=== PATIENT | female | born 1945 | race Caucasian/White ===

== ENCOUNTER 2019-02-02 14:09 | Emergency (ER) | payer BC, MEDICAID ==
[~2019-02-02] VITALS: Ht 160 cm; Wt 100.7 kg
--- NOTE | 2019-02-02 15:40 | NUR ---
jared garrido brought back pt 's electric scooter. pt so has the carter in his hand
--- NOTE | 2019-02-02 16:10 | NUR ---
Patient discharged to home in stable conditon. Written and verbal after care instructions given. Patient verbalizes understanding of instructions.pt was offered ambulance to transfer the pt home. pt refused and requested taxi to be called.
--- NOTE | 2019-02-02 16:26 | NUR ---
roc jackson, utility worker [employer], assissted pt to put the pt own sling on and transfering the pt from bed to pt own electrical wheelchair with maxi move fiona lift per pt request. pt refused to sit at the center and instead insisted to sit on the side. pt so at bedside.
[2019-02-02 16:37] VITALS: BP 139/69
== END 2019-02-02 16:41 | disposition home or self-care (01) ==
LOC: ER 14:09
DX: S00.83XA Contusion of other part of head, initial encounter (principal); M79.604 Pain in right leg; W22.8XXA Striking against or struck by other objects, initial encounter; Y93.89 Activity, other specified; Y92.89 Other specified places as the place of occurrence of the external cause; Y99.8 Other external cause status
CPT/HCPCS: 70450; 70486; 73590; A4663